=== PATIENT | female | born 1950 | race Caucasian/White ===

== ENCOUNTER 2018-12-03 15:04 | Inpatient (IN) | payer MEDICARE, BC ==
[2018-12-03] MEDS: LACTATED RINGER'S 1,000 ML IV ×2 (16:22→17:36)
[2018-12-03] MEDS: SOD CHLORIDE 0.9% 1,000 ML IV ×3 (16:22→19:54)
[2018-12-03 16:30] LABS: WHITE BLOOD COUNT 12.3 10^3/ul (4.8-10.8)
[2018-12-03 16:31] LABS: HEMATOCRIT 43.5 % (37.0-47.0); MEAN CORPUSCULAR HEMOGLOBIN 30.3 pg (29.0-33.0); MEAN CORPUSCULAR HGB CONC 34.5 g/dl (32.0-37.0); MEAN CORPUSCULAR VOLUME 87.9 fl (82.0-101.0); MEAN PLATELET VOLUME 9.4 fl (7.4-10.4); PLATELET COUNT 333 10^3/UL (140-415); RED BLOOD COUNT 4.95 10^6/ul (4.20-5.40); RED CELL DISTRIBUTION WIDTH 12.3 % (11.5-14.5)
[2018-12-03 16:37] LABS: ADD MAN DIFF? YES; POSITIVE DIFF @See below
[2018-12-03 16:52] LABS: ALANINE AMINOTRANSFERASE 12 IU/L (13-69); ALBUMIN 4.1 g/dl (3.3-4.9); ALBUMIN/GLOBULIN RATIO 1.02; ALKALINE PHOSPHATASE 134 IU/L (42-121); ANION GAP 15 (5-13); ASPARTATE AMINO TRANSFERASE 27 IU/L (15-46); BILIRUBIN,INDIRECT 0.9 mg/dl (0-1.1); BILIRUBIN,TOTAL 0.9 mg/dl (0.2-1.3); BLOOD UREA NITROGEN 34 mg/dl (7-20); CALCIUM 10.7 mg/dl (8.4-10.2); CARBON DIOXIDE 17 mmol/L (21-31); CHLORIDE 95 mmol/L (97-110); CREATININE 2.06 mg/dl (0.44-1.00); Estimated GFR 24 mL/min (>60); GLUCOSE 119 mg/dl (70-220); LIPASE 48 U/L (23-300); POTASSIUM 4.7 mmol/L (3.5-5.1); SODIUM 127 mmol/L (135-144); TOTAL PROTEIN 8.1 g/dl (6.1-8.1)
[2018-12-03 17:02] LABS: TROPONIN-I < 0.012 ng/ml (0.000-0.120)
[2018-12-03 17:50] LABS: BAND NEUTROPHILS #M 2.4 10^3/ul (0.0-0.6); BAND NEUTROPHILS % (M) 20 % (0-4); LYMPHOCYTES #M 2.3 10^3/ul (0.8-2.9); LYMPHOCYTES % (M) 19 % (15-51); METAMYELOCYTES #M 0.1 10^3/ul (0.0-0.0); METAMYELOCYTES %M 1 % (0-0); MONOCYTE #M 1.3 10^3/ul (0.3-0.9); MONOCYTES % (M) 11 % (0-11); PLATELET ESTIMATE NORMAL; POIKILOCYTOSIS 1+ (0-0); REACTIVE LYMPHOCYTES #M 0.4 10^3/ul (0.0-0.0); REACTIVE LYMPHOCYTES% (M) 4 % (0-0); SEG NEUT #M 5.8 10^3/ul (1.6-7.5); SEGMENTED NEUTROPHILS (M) % 45 % (39-77); SMUDGE%M 4 % (0-0)
[2018-12-03] MEDS ORDERED: HYDROCODONE/APAP (5/325) TAB PO (18:00)
[2018-12-03] MEDS ORDERED: morphine 2 MG INJ IV (18:00)
[2018-12-03] MEDS ORDERED: NACL 0.9% 3 ML SYG IV (18:00)
[2018-12-03] MEDS ORDERED: FAMOTIDINE 20 MG INJ IV (18:30)
[2018-12-03 18:48] LABS: ADD UMIC YES; UR ASCORBIC ACID NEGATIVE (NEGATIVE); UR BACTERIA FEW /HPF (NONE SEEN); UR BILIRUBIN (Dip) 1+ mg/dL (NEGATIVE); UR BLOOD (Dip) 2+ mg/dL (NEGATIVE); UR CLARITY CLOUDY (CLEAR); UR COLOR AMBER (YELLOW); UR GLUCOSE (Dip) NEGATIVE (NEGATIVE); UR HYALINE CAST FEW /HPF (NONE SEEN); UR KETONES (Dip) TRACE mg/dL (NEGATIVE); UR LEUKOCYTE ESTERASE (Dip) NEGATIVE Leu/ul (NEGATIVE); UR MUCUS FEW /HPF (NONE SEEN); UR NITRITE (Dip) NEGATIVE (NEGATIVE); UR RBC 54 /HPF (0-5); UR SPECIFIC GRAVITY (Dip) 1.018 (1.003-1.030); UR SQUAMOUS EPITHELIAL CELL FEW /HPF (FEW); UR TOTAL PROTEIN (Dip) NEGATIVE (NEGATIVE); UR UROBILINOGEN (Dip) 2+ mg/dL (NEGATIVE); UR WBC 3 /HPF (0-5)
[2018-12-03] MEDS: PIPER-TAZO 2.25 GM (PMX) 50 ML IVPB (19:53)
[2018-12-03] MEDS: HYDROCORTISONE 20 MG TAB PO (21:33)
[2018-12-04] MEDS ORDERED: VANCOMYCIN IV PER PHARMACY XX (00:30)
[2018-12-04] MEDS: ALBUMIN HUMAN 25% 100 ML IV ×2 (00:37→02:08)
[2018-12-04] MEDS: IOHEXOL 14.3 MG(I)/ML (ADULT) BTL PO (01:12)
[2018-12-04 01:15] LABS: ALANINE AMINOTRANSFERASE 17 IU/L (13-69); ALBUMIN 2.7 g/dl (3.3-4.9); ALBUMIN/GLOBULIN RATIO 0.93; ALKALINE PHOSPHATASE 80 IU/L (42-121); ANION GAP 8 (5-13); ASPARTATE AMINO TRANSFERASE 32 IU/L (15-46); BILIRUBIN,INDIRECT 0.6 mg/dl (0-1.1); BILIRUBIN,TOTAL 0.6 mg/dl (0.2-1.3); BLOOD UREA NITROGEN 29 mg/dl (7-20); CALCIUM 9.1 mg/dl (8.4-10.2); CARBON DIOXIDE 18 mmol/L (21-31); CHLORIDE 101 mmol/L (97-110); CREATININE 1.45 mg/dl (0.44-1.00); Estimated GFR 36 mL/min (>60); GLUCOSE 103 mg/dl (70-220); POTASSIUM 4.2 mmol/L (3.5-5.1); SODIUM 127 mmol/L (135-144); TOTAL PROTEIN 5.6 g/dl (6.1-8.1)
[2018-12-04 01:16] LABS: LACTIC ACID 2.3 mmol/L (0.5-2.0)
[2018-12-04 01:18] LABS: INR 1.31; PROTIME 16.4 Sec (11.9-14.9); PT RATIO 1.3
[2018-12-04 01:21] LABS: PARTIAL THROMBOPLASTIN TIME 41.2 Sec (23.0-35.0)
[2018-12-04] MEDS: ONDANSETRON 4 MG INJ IV (01:25)
[2018-12-04] MEDS: VANCOMYCIN 1 GM 250 ML IVPB (02:47)
[2018-12-04] MEDS: MEROPENEM 1 GM/50ML(PMX) 50 ML IVPB ×3 (02:48→20:27)
[2018-12-04] MEDS: SOD CHLORIDE 0.9% 500 ML IV ×2 (03:00→06:06)
[2018-12-04] MEDS: SOD CHLORIDE 0.9% 100 ML (05:38)
[2018-12-04] MEDS: IOHEXOL 300MG/ML 150 ML BTL (05:38)
[2018-12-04] MEDS: PANTOPRAZOLE (EC) 40 MG TAB PO (06:00)
[2018-12-04] MEDS: SOD CHLORIDE 0.9% 1,000 ML IV ×4 (06:08→22:14)
[2018-12-04 06:17] LABS: ABNORMAL IP MESSAGE 1; HEMATOCRIT 31.1 % (37.0-47.0); HEMOGLOBIN 10.4 g/dl (12.0-16.0); MEAN CORPUSCULAR HEMOGLOBIN 29.5 pg (29.0-33.0); MEAN CORPUSCULAR HGB CONC 33.4 g/dl (32.0-37.0); MEAN CORPUSCULAR VOLUME 88.4 fl (82.0-101.0); MEAN PLATELET VOLUME 9.2 fl (7.4-10.4); PLATELET COUNT 182 10^3/UL (140-415); RED BLOOD COUNT 3.52 10^6/ul (4.20-5.40); RED CELL DISTRIBUTION WIDTH 12.7 % (11.5-14.5)
[2018-12-04 06:17] LABS: WHITE BLOOD COUNT 6.9 10^3/ul (4.8-10.8)
[2018-12-04 06:25] LABS: ADD MAN DIFF? YES; POSITIVE DIFF @See below
[2018-12-04 06:28] LABS: HEMOGLOBIN A1C 5.2 % (0-5.9)
[2018-12-04 07:02] LABS: ALANINE AMINOTRANSFERASE 20 IU/L (13-69); ALBUMIN 3.5 g/dl (3.3-4.9); ALBUMIN/GLOBULIN RATIO 1.29; ALKALINE PHOSPHATASE 68 IU/L (42-121); ANION GAP 10 (5-13); ASPARTATE AMINO TRANSFERASE 40 IU/L (15-46); BILIRUBIN,INDIRECT 0.7 mg/dl (0-1.1); BILIRUBIN,TOTAL 0.7 mg/dl (0.2-1.3); BLOOD UREA NITROGEN 26 mg/dl (7-20); CALCIUM 9.3 mg/dl (8.4-10.2); CARBON DIOXIDE 17 mmol/L (21-31); CHLORIDE 98 mmol/L (97-110); CHOL/HDL RATIO 3.5 RATIO; CHOLESTEROL 109 mg/dl (100-200); CREATININE 1.29 mg/dl (0.44-1.00); Estimated GFR 41 mL/min (>60); GLUCOSE 89 mg/dl (70-220); HDL CHOLESTEROL 31 mg/dl (35-98); LDL CHOLESTEROL,CALCULATED 55 mg/dl; MAGNESIUM 1.7 mg/dl (1.7-2.5); POTASSIUM 4.7 mmol/L (3.5-5.1); SODIUM 125 mmol/L (135-144); TOTAL PROTEIN 6.2 g/dl (6.1-8.1); TRIGLYCERIDES 116 mg/dl (0-149)
[2018-12-04 08:03] LABS: ANISOCYTOSIS 1+ (0-0); BAND NEUTROPHILS #M 2.9 10^3/ul (0.0-0.6); BAND NEUTROPHILS % (M) 43 % (0-4); BURR CELLS 2+ (0-0); LYMPHOCYTES #M 1.1 10^3/ul (0.8-2.9); LYMPHOCYTES % (M) 16 % (15-51); MICROCYTOSIS 1+ (0-0); MONOCYTE #M 0.4 10^3/ul (0.3-0.9); MONOCYTES % (M) 7 % (0-11); PLATELET ESTIMATE NORMAL; POIKILOCYTOSIS 2+ (0-0); POLYCHROMASIA 3+ (0-0); SEG NEUT #M 2.5 10^3/ul (1.6-7.5); SEGMENTED NEUTROPHILS (M) % 34 % (39-77); SMUDGE%M 2 % (0-0)
[2018-12-04] MEDS: FOLIC ACID 1 MG TAB PO (09:00)
[2018-12-04] MEDS ORDERED: FENTAnyl (DRIP) 1000 mcg/100mL 100 ML IV (09:00)
[2018-12-04] MEDS ORDERED: FENTAnyl 50 MCG/ML VIAL IV (09:00)
[2018-12-04] MEDS: CHOLECALCIFEROL 1,000 UNIT TAB PO (09:00)
[2018-12-04] MEDS: HYDROCORTISONE 100 MG INJ IV ×2 (09:50→20:26)
[2018-12-04] MEDS: FAMOTIDINE 20 MG INJ IV (09:50)
[2018-12-04] MEDS: MAGNESIUM SULFATE 3 GM in DEXTROSE 5% 100 ML IVPB (11:00)
[2018-12-04] MEDS: ALBUMIN HUMAN 5% 250 ML INJ IV (11:55)
[2018-12-04 15:55] LABS: ADD UMIC YES; UR ASCORBIC ACID NEGATIVE (NEGATIVE); UR BILIRUBIN (Dip) NEGATIVE (NEGATIVE); UR BLOOD (Dip) 2+ mg/dL (NEGATIVE); UR CLARITY CLEAR (CLEAR); UR COLOR YELLOW (YELLOW); UR GLUCOSE (Dip) NEGATIVE (NEGATIVE); UR KETONES (Dip) TRACE mg/dL (NEGATIVE); UR LEUKOCYTE ESTERASE (Dip) NEGATIVE Leu/ul (NEGATIVE); UR NITRITE (Dip) NEGATIVE (NEGATIVE); UR RBC 2 /HPF (0-5); UR SPECIFIC GRAVITY (Dip) 1.033 (1.003-1.030); UR TOTAL PROTEIN (Dip) NEGATIVE (NEGATIVE); UR UROBILINOGEN (Dip) NEGATIVE (NEGATIVE); UR WBC 1 /HPF (0-5)
[2018-12-04 16:35] LABS: CREATININE,URINE RANDOM 40.38 mg/dl (20-320)
[2018-12-04 16:35] LABS: SODIUM,URINE RANDOM 96 mmol/L (30-90)
[2018-12-04 20:31] LABS: OSMOLALITY,URINE 451 mOsm/kg (250-1200)
[2018-12-05 04:51] LABS: ABNORMAL IP MESSAGE 1; HEMATOCRIT 27.7 % (37.0-47.0); HEMOGLOBIN 9.4 g/dl (12.0-16.0); MEAN CORPUSCULAR HEMOGLOBIN 29.9 pg (29.0-33.0); MEAN CORPUSCULAR HGB CONC 33.9 g/dl (32.0-37.0); MEAN CORPUSCULAR VOLUME 88.2 fl (82.0-101.0); MEAN PLATELET VOLUME 9.4 fl (7.4-10.4); PLATELET COUNT 178 10^3/UL (140-415); RED BLOOD COUNT 3.14 10^6/ul (4.20-5.40); RED CELL DISTRIBUTION WIDTH 12.8 % (11.5-14.5)
[2018-12-05 04:51] LABS: WHITE BLOOD COUNT 5.8 10^3/ul (4.8-10.8)
[2018-12-05 04:55] LABS: ADD MAN DIFF? YES; POSITIVE DIFF @See below
[2018-12-05 05:14] LABS: ANION GAP 11 (5-13); BLOOD UREA NITROGEN 22 mg/dl (7-20); CALCIUM 9.2 mg/dl (8.4-10.2); CARBON DIOXIDE 17 mmol/L (21-31); CHLORIDE 109 mmol/L (97-110); CREATININE 0.91 mg/dl (0.44-1.00); Estimated GFR > 60 mL/min (>60); GLUCOSE 110 mg/dl (70-220); MAGNESIUM 2.7 mg/dl (1.7-2.5); PHOSPHORUS 4.2 mg/dl (2.5-4.9); POTASSIUM 3.3 mmol/L (3.5-5.1); SODIUM 137 mmol/L (135-144)
[2018-12-05 07:13] LABS: ANISOCYTOSIS 2+ (0-0); BAND NEUTROPHILS #M 0.9 10^3/ul (0.0-0.6); BAND NEUTROPHILS % (M) 16 % (0-4); BURR CELLS 3+ (0-0); GIANT THROMBO% (M) 1 % (0-0); LYMPHOCYTES #M 0.4 10^3/ul (0.8-2.9); LYMPHOCYTES % (M) 8 % (15-51); MONOCYTE #M 0.2 10^3/ul (0.3-0.9); MONOCYTES % (M) 5 % (0-11); PLATELET ESTIMATE NORMAL; POIKILOCYTOSIS 3+ (0-0); POLYCHROMASIA 3+ (0-0); SEG NEUT #M 4.2 10^3/ul (1.6-7.5); SEGMENTED NEUTROPHILS (M) % 71 % (39-77); SMUDGE%M 3 % (0-0)
[2018-12-05] MEDS: POTASSIUM CHLORIDE 100 ML IVPB ×2 (07:37→10:28)
[2018-12-05] MEDS: HYDROCORTISONE 100 MG INJ IV ×2 (08:42→20:09)
[2018-12-05] MEDS: MEROPENEM 1 GM/50ML(PMX) 50 ML IVPB (08:42)
[2018-12-05] MEDS: FAMOTIDINE 20 MG INJ IV (08:42)
[2018-12-05] MEDS: CHOLECALCIFEROL 1,000 UNIT TAB PO (08:43)
[2018-12-05] MEDS: FOLIC ACID 1 MG TAB PO (08:43)
[2018-12-05] MEDS ORDERED: VANCOMYCIN 750 MG (PMX) 250 ML IVPB (15:00)
[2018-12-05] MEDS: metroNIDAZOLE 500 MG/NS (PMX) 100 ML IVPB ×2 (15:08→22:04)
[2018-12-05] MEDS: VANCOMYCIN HCL 250 MG/5ML POSYG PO ×2 (16:18→20:09)
[2018-12-05] MEDS: BISACODYL (EC) 5 MG TAB PO ×2 (16:18→22:04)
[2018-12-05] MEDS: PEG/ELECTROLYTES 4L BTL PO ×2 (17:14→20:09)
[2018-12-05] MEDS: SOD CHLORIDE 0.9% 1,000 ML IV (22:45)
[2018-12-06] MEDS: VANCOMYCIN HCL 250 MG/5ML POSYG PO ×5 (00:11→22:37)
[2018-12-06] MEDS ORDERED: VANCOMYCIN 750 MG (PMX) 250 ML IVPB (02:00)
[2018-12-06] MEDS: metroNIDAZOLE 500 MG/NS (PMX) 100 ML IVPB ×3 (05:00→19:56)
[2018-12-06 05:59] LABS: ABNORMAL IP MESSAGE 1; HEMATOCRIT 28.1 % (37.0-47.0); HEMOGLOBIN 9.7 g/dl (12.0-16.0); MEAN CORPUSCULAR HGB CONC 34.5 g/dl (32.0-37.0); MEAN PLATELET VOLUME 9.5 fl (7.4-10.4); PLATELET COUNT 223 10^3/UL (140-415); RED BLOOD COUNT 3.23 10^6/ul (4.20-5.40); RED CELL DISTRIBUTION WIDTH 12.5 % (11.5-14.5)
[2018-12-06 05:59] LABS: WHITE BLOOD COUNT 7.1 10^3/ul (4.8-10.8)
[2018-12-06 06:10] LABS: ADD MAN DIFF? YES; POSITIVE DIFF @See below
[2018-12-06 06:54] LABS: ANION GAP 8 (5-13); BLOOD UREA NITROGEN 19 mg/dl (7-20); CALCIUM 9.3 mg/dl (8.4-10.2); CARBON DIOXIDE 20 mmol/L (21-31); CHLORIDE 114 mmol/L (97-110); CREATININE 0.73 mg/dl (0.44-1.00); Estimated GFR > 60 mL/min (>60); GLUCOSE 148 mg/dl (70-220); MAGNESIUM 2.2 mg/dl (1.7-2.5); PHOSPHORUS 1.5 mg/dl (2.5-4.9); SODIUM 142 mmol/L (135-144)
[2018-12-06 07:08] LABS: CARCINOEMBRYONIC ANTIGEN 5.9 ng/ml (0.0-5.0)
[2018-12-06 07:30] LABS: BAND NEUTROPHILS #M 1.2 10^3/ul (0.0-0.6); BAND NEUTROPHILS % (M) 18 % (0-4); BURR CELLS 2+ (0-0); GIANT THROMBO% (M) 4 % (0-0); LYMPHOCYTES #M 0.4 10^3/ul (0.8-2.9); LYMPHOCYTES % (M) 7 % (15-51); MONOCYTES % (M) 1 % (0-11); PLATELET ESTIMATE NORMAL; POIKILOCYTOSIS 2+ (0-0); SEG NEUT #M 5.3 10^3/ul (1.6-7.5); SEGMENTED NEUTROPHILS (M) % 74 % (39-77); SMUDGE%M 3 % (0-0)
[2018-12-06 07:46] LABS: POTASSIUM 2.8 mmol/L (3.5-5.1)
[2018-12-06] MEDS: FAMOTIDINE 20 MG INJ IV (08:28)
[2018-12-06] MEDS: HYDROCORTISONE 100 MG INJ IV ×2 (08:28→19:56)
[2018-12-06] MEDS: CHOLECALCIFEROL 1,000 UNIT TAB PO (08:29)
[2018-12-06] MEDS: FOLIC ACID 1 MG TAB PO (08:29)
[2018-12-06] MEDS: POTASSIUM CHLORIDE 100 ML IVPB ×3 (09:17→13:51)
[2018-12-06] MEDS ORDERED: POTASSIUM PHOSPHATE 20 MEQ in SOD CHLORIDE 0.9% 250 ML IVPB (10:30)
[2018-12-06 15:11] LABS: CREATININE, RANDOM URINE 47 mg/dL (20-275); MICROALBUMIN 1.3 mg/dL; MICROALBUMIN/CREATININE RATIO 28 (<30)
[2018-12-06] MEDS: SOD CHLORIDE 0.9% 1,000 ML IV (17:22)
[2018-12-06] MEDS: POTASSIUM PHOSPHATE 20 MEQ in SOD CHLORIDE 0.9% 250 ML IVPB (17:22)
[2018-12-06] MEDS: ACETAMINOPHEN 325 MG TAB PO (22:38)
[2018-12-07] MEDS: metroNIDAZOLE 500 MG/NS (PMX) 100 ML IVPB ×3 (04:45→20:33)
[2018-12-07] MEDS: VANCOMYCIN HCL 250 MG/5ML POSYG PO ×4 (04:45→23:04)
[2018-12-07 05:05] LABS: ADD MAN DIFF? NO
[2018-12-07 05:10] LABS: WHITE BLOOD COUNT 6.3 10^3/ul (4.8-10.8)
[2018-12-07 05:10] LABS: BASOPHILS % 0.2 % (0.0-2.0); HEMATOCRIT 29.5 % (37.0-47.0); HEMOGLOBIN 10.2 g/dl (12.0-16.0); LYMPHOCYTES # 0.7 10^3/ul (0.8-2.9); LYMPHOCYTES % 11.5 % (15.0-51.0); MEAN CORPUSCULAR HEMOGLOBIN 30.3 pg (29.0-33.0); MEAN CORPUSCULAR HGB CONC 34.6 g/dl (32.0-37.0); MEAN CORPUSCULAR VOLUME 87.5 fl (82.0-101.0); MEAN PLATELET VOLUME 9.3 fl (7.4-10.4); MONOCYTE # 0.4 10^3/ul (0.3-0.9); MONOCYTES % 6.8 % (0.0-11.0); NEUTROPHILS % 80.2 % (39.0-77.0); PLATELET COUNT 232 10^3/UL (140-415); RED BLOOD COUNT 3.37 10^6/ul (4.20-5.40); RED CELL DISTRIBUTION WIDTH 12.7 % (11.5-14.5)
[2018-12-07 05:45] LABS: ANION GAP 10 (5-13); BLOOD UREA NITROGEN 22 mg/dl (7-20); CARBON DIOXIDE 21 mmol/L (21-31); CHLORIDE 112 mmol/L (97-110); Estimated GFR > 60 mL/min (>60); GLUCOSE 144 mg/dl (70-220); MAGNESIUM 1.9 mg/dl (1.7-2.5); PHOSPHORUS 1.6 mg/dl (2.5-4.9); SODIUM 143 mmol/L (135-144)
[2018-12-07] MEDS: HYDROCORTISONE 100 MG INJ IV ×2 (08:38→20:33)
[2018-12-07] MEDS: FAMOTIDINE 20 MG INJ IV (08:38)
[2018-12-07] MEDS: CHOLECALCIFEROL 1,000 UNIT TAB PO (08:38)
[2018-12-07] MEDS: FOLIC ACID 1 MG TAB PO (08:39)
[2018-12-07] MEDS: POTASSIUM CHLORIDE (SR) 20 MEQ TAB PO (09:32)
[2018-12-07] MEDS: NEUTRA-PHOS 250 MG PACKET PO (20:33)
[2018-12-07] MEDS: GABAPENTIN 400 MG CAP PO (20:33)
[2018-12-08] MEDS: metroNIDAZOLE 500 MG/NS (PMX) 100 ML IVPB ×3 (04:17→20:15)
[2018-12-08] MEDS: VANCOMYCIN HCL 250 MG/5ML POSYG PO ×3 (04:17→17:23)
[2018-12-08 06:26] LABS: ANION GAP 11 (5-13); BLOOD UREA NITROGEN 18 mg/dl (7-20); CALCIUM 8.7 mg/dl (8.4-10.2); CARBON DIOXIDE 24 mmol/L (21-31); CHLORIDE 107 mmol/L (97-110); CREATININE 0.64 mg/dl (0.44-1.00); Estimated GFR > 60 mL/min (>60); GLUCOSE 136 mg/dl (70-220); MAGNESIUM 1.5 mg/dl (1.7-2.5); PHOSPHORUS 2.1 mg/dl (2.5-4.9); SODIUM 142 mmol/L (135-144)
[2018-12-08 06:51] LABS: POTASSIUM 2.4 mmol/L (3.5-5.1)
[2018-12-08] MEDS: NEUTRA-PHOS 250 MG PACKET PO ×2 (08:33→20:15)
[2018-12-08] MEDS: HYDROCORTISONE 100 MG INJ IV ×2 (08:33→20:15)
[2018-12-08] MEDS: FAMOTIDINE 20 MG INJ IV (08:33)
[2018-12-08] MEDS: FOLIC ACID 1 MG TAB PO (08:33)
[2018-12-08] MEDS: CHOLECALCIFEROL 1,000 UNIT TAB PO (08:33)
[2018-12-08] MEDS: GABAPENTIN 400 MG CAP PO ×2 (08:33→20:15)
[2018-12-08] MEDS: ENOXAPARIN 40 MG/0.4 ML SYG SC (08:54)
[2018-12-08] MEDS: POTASSIUM CHLORIDE (SR) 20 MEQ TAB PO ×2 (09:26→14:54)
[2018-12-08] MEDS: MAGNESIUM SULFATE 4 GM/100 ML 100 ML IVPB (10:24)
[2018-12-08 14:25] LABS: ANION GAP 9 (5-13); BLOOD UREA NITROGEN 19 mg/dl (7-20); CALCIUM 8.2 mg/dl (8.4-10.2); CARBON DIOXIDE 23 mmol/L (21-31); CHLORIDE 104 mmol/L (97-110); CREATININE 0.61 mg/dl (0.44-1.00); Estimated GFR > 60 mL/min (>60); GLUCOSE 174 mg/dl (70-220); POTASSIUM 3.1 mmol/L (3.5-5.1); SODIUM 136 mmol/L (135-144)
[2018-12-08] MEDS: POTASSIUM PHOSPHATE 15 MM in SOD CHLORIDE 0.9% 250 ML IVPB (15:29)
[2018-12-09] MEDS: VANCOMYCIN HCL 250 MG/5ML POSYG PO ×4 (00:45→17:22)
[2018-12-09] MEDS: metroNIDAZOLE 500 MG/NS (PMX) 100 ML IVPB ×3 (05:37→21:20)
[2018-12-09 07:10] LABS: WHITE BLOOD COUNT 6.3 10^3/ul (4.8-10.8)
[2018-12-09 07:10] LABS: ABNORMAL IP MESSAGE 1; HEMOGLOBIN 11.6 g/dl (12.0-16.0); MEAN CORPUSCULAR HEMOGLOBIN 30.1 pg (29.0-33.0); MEAN CORPUSCULAR HGB CONC 34.1 g/dl (32.0-37.0); MEAN CORPUSCULAR VOLUME 88.1 fl (82.0-101.0); MEAN PLATELET VOLUME 9.2 fl (7.4-10.4); NUCLEATED RED BLOOD CELLS% 0.3 /100WBC (0.0-0.0); PLATELET COUNT 268 10^3/UL (140-415); RED BLOOD COUNT 3.86 10^6/ul (4.20-5.40)
[2018-12-09 07:13] LABS: ADD MAN DIFF? YES; POSITIVE DIFF @See below
[2018-12-09 08:03] LABS: ANION GAP 6 (5-13); BLOOD UREA NITROGEN 21 mg/dl (7-20); CALCIUM 8.2 mg/dl (8.4-10.2); CARBON DIOXIDE 29 mmol/L (21-31); CHLORIDE 107 mmol/L (97-110); CREATININE 0.59 mg/dl (0.44-1.00); Estimated GFR > 60 mL/min (>60); GLUCOSE 114 mg/dl (70-220); MAGNESIUM 2.1 mg/dl (1.7-2.5); SODIUM 142 mmol/L (135-144)
[2018-12-09 08:05] LABS: POTASSIUM 2.7 mmol/L (3.5-5.1)
[2018-12-09 09:01] LABS: BAND NEUTROPHILS % (M) 1 % (0-4); LYMPHOCYTES #M 1.5 10^3/ul (0.8-2.9); LYMPHOCYTES % (M) 25 % (15-51); MONOCYTE #M 0.8 10^3/ul (0.3-0.9); MONOCYTES % (M) 13 % (0-11); MYELOCYTES #M 0.1 10^3/ul (0.0-0.0); MYELOCYTES % (M) 3 % (0-0); PLATELET ESTIMATE NORMAL; POIKILOCYTOSIS 2+ (0-0); POLYCHROMASIA 1+ (0-0); SEG NEUT #M 3.7 10^3/ul (1.6-7.5); SEGMENTED NEUTROPHILS (M) % 58 % (39-77); SMUDGE%M 13 % (0-0)
[2018-12-09] MEDS: POTASSIUM CHLORIDE (SR) 20 MEQ TAB PO (09:45)
[2018-12-09] MEDS: GABAPENTIN 400 MG CAP PO (09:46)
[2018-12-09] MEDS: POTASSIUM CHLORIDE 100 ML IVPB ×2 (09:46→12:17)
[2018-12-09] MEDS: FOLIC ACID 1 MG TAB PO (09:46)
[2018-12-09] MEDS: CHOLECALCIFEROL 1,000 UNIT TAB PO (09:46)
[2018-12-09] MEDS: FAMOTIDINE 20 MG INJ IV (09:46)
[2018-12-09] MEDS: ENOXAPARIN 40 MG/0.4 ML SYG SC (09:47)
[2018-12-09] MEDS: HYDROCORTISONE 20 MG TAB PO (20:39)
[2018-12-10] MEDS: VANCOMYCIN HCL 250 MG/5ML POSYG PO ×5 (00:19→23:28)
[2018-12-10] MEDS: metroNIDAZOLE 500 MG/NS (PMX) 100 ML IVPB ×3 (05:14→21:22)
[2018-12-10 06:30] LABS: WHITE BLOOD COUNT 7.9 10^3/ul (4.8-10.8)
[2018-12-10 06:30] LABS: ABNORMAL IP MESSAGE 1; HEMATOCRIT 35.2 % (37.0-47.0); HEMOGLOBIN 11.9 g/dl (12.0-16.0); MEAN CORPUSCULAR HEMOGLOBIN 29.8 pg (29.0-33.0); MEAN CORPUSCULAR HGB CONC 33.8 g/dl (32.0-37.0); MEAN CORPUSCULAR VOLUME 88.2 fl (82.0-101.0); MEAN PLATELET VOLUME 9.1 fl (7.4-10.4); PLATELET COUNT 245 10^3/UL (140-415); RED BLOOD COUNT 3.99 10^6/ul (4.20-5.40); RED CELL DISTRIBUTION WIDTH 12.9 % (11.5-14.5)
[2018-12-10 06:34] LABS: ADD MAN DIFF? YES; POSITIVE DIFF @See below
[2018-12-10 06:59] LABS: ALANINE AMINOTRANSFERASE 33 IU/L (13-69); ALBUMIN 2.6 g/dl (3.3-4.9); ALBUMIN/GLOBULIN RATIO 0.96; ALKALINE PHOSPHATASE 85 IU/L (42-121); ANION GAP 5 (5-13); ASPARTATE AMINO TRANSFERASE 36 IU/L (15-46); BILIRUBIN,INDIRECT 0.7 mg/dl (0-1.1); BILIRUBIN,TOTAL 0.7 mg/dl (0.2-1.3); BLOOD UREA NITROGEN 19 mg/dl (7-20); CALCIUM 8.1 mg/dl (8.4-10.2); CARBON DIOXIDE 26 mmol/L (21-31); CHLORIDE 108 mmol/L (97-110); CREATININE 0.55 mg/dl (0.44-1.00); Estimated GFR > 60 mL/min (>60); GLUCOSE 96 mg/dl (70-220); POTASSIUM 3.4 mmol/L (3.5-5.1); SODIUM 139 mmol/L (135-144); TOTAL PROTEIN 5.3 g/dl (6.1-8.1)
[2018-12-10 07:00] LABS: MAGNESIUM 1.8 mg/dl (1.7-2.5)
[2018-12-10 07:00] LABS: PHOSPHORUS 2.7 mg/dl (2.5-4.9)
[2018-12-10] MEDS: LISINOPRIL 20 MG TAB PO (08:07)
[2018-12-10] MEDS: CHOLECALCIFEROL 1,000 UNIT TAB PO (08:07)
[2018-12-10] MEDS: HYDROCORTISONE 20 MG TAB PO ×2 (08:07→21:22)
[2018-12-10] MEDS: FOLIC ACID 1 MG TAB PO (08:07)
[2018-12-10] MEDS: ENOXAPARIN 40 MG/0.4 ML SYG SC (08:09)
[2018-12-10] MEDS: POTASSIUM CHLORIDE (SR) 20 MEQ TAB PO (09:03)
[2018-12-10 10:14] LABS: BAND NEUTROPHILS #M 0.1 10^3/ul (0.0-0.6); BAND NEUTROPHILS % (M) 2 % (0-4); EOSINOPHILS % (M) 2 % (0-7); LYMPHOCYTES #M 3.6 10^3/ul (0.8-2.9); LYMPHOCYTES % (M) 46 % (15-51); METAMYELOCYTES %M 1 % (0-0); MONOCYTE #M 0.2 10^3/ul (0.3-0.9); MONOCYTES % (M) 3 % (0-11); MYELOCYTES % (M) 1 % (0-0); PLATELET ESTIMATE NORMAL; POLYCHROMASIA 1+ (0-0); REACTIVE LYMPHOCYTES #M 0.2 10^3/ul (0.0-0.0); REACTIVE LYMPHOCYTES% (M) 3 % (0-0); SEG NEUT #M 3.3 10^3/ul (1.6-7.5); SEGMENTED NEUTROPHILS (M) % 42 % (39-77); SMUDGE%M 8 % (0-0)
[2018-12-10] MEDS: ACETAMINOPHEN 325 MG TAB PO (15:29)
[2018-12-11] MEDS: metroNIDAZOLE 500 MG/NS (PMX) 100 ML IVPB ×3 (05:09→22:28)
[2018-12-11] MEDS: VANCOMYCIN HCL 250 MG/5ML POSYG PO ×3 (05:09→17:22)
[2018-12-11] MEDS: HYDROCORTISONE 20 MG TAB PO ×3 (09:00→22:28)
[2018-12-11] MEDS: FOLIC ACID 1 MG TAB PO (09:21)
[2018-12-11] MEDS: CHOLECALCIFEROL 1,000 UNIT TAB PO (09:21)
[2018-12-11] MEDS: LISINOPRIL 20 MG TAB PO (09:22)
[2018-12-11] MEDS: ENOXAPARIN 40 MG/0.4 ML SYG SC (09:25)
[2018-12-11 11:23] LABS: ANION GAP 7 (5-13); BLOOD UREA NITROGEN 16 mg/dl (7-20); CALCIUM 8.4 mg/dl (8.4-10.2); CARBON DIOXIDE 28 mmol/L (21-31); CHLORIDE 103 mmol/L (97-110); Estimated GFR > 60 mL/min (>60); GLUCOSE 97 mg/dl (70-220); POTASSIUM 3.7 mmol/L (3.5-5.1); SODIUM 138 mmol/L (135-144)
[2018-12-12] MEDS: VANCOMYCIN HCL 250 MG/5ML POSYG PO ×4 (00:19→17:26)
[2018-12-12] MEDS: metroNIDAZOLE 500 MG/NS (PMX) 100 ML IVPB ×2 (06:12→13:25)
[2018-12-12 08:35] LABS: ANION GAP 5 (5-13); BLOOD UREA NITROGEN 13 mg/dl (7-20); CALCIUM 8.6 mg/dl (8.4-10.2); CARBON DIOXIDE 28 mmol/L (21-31); CHLORIDE 105 mmol/L (97-110); CREATININE 0.59 mg/dl (0.44-1.00); Estimated GFR > 60 mL/min (>60); GLUCOSE 78 mg/dl (70-220); MAGNESIUM 1.9 mg/dl (1.7-2.5); PHOSPHORUS 3.9 mg/dl (2.5-4.9); POTASSIUM 3.9 mmol/L (3.5-5.1); SODIUM 138 mmol/L (135-144)
[2018-12-12] MEDS: HYDROCORTISONE 20 MG TAB PO ×2 (09:00→21:00)
[2018-12-12] MEDS: FOLIC ACID 1 MG TAB PO (09:25)
[2018-12-12] MEDS: CHOLECALCIFEROL 1,000 UNIT TAB PO (09:25)
[2018-12-12] MEDS: LISINOPRIL 20 MG TAB PO (09:26)
[2018-12-12] MEDS: ENOXAPARIN 40 MG/0.4 ML SYG SC (09:28)
[2018-12-13] MEDS: VANCOMYCIN HCL 250 MG/5ML POSYG PO ×4 (00:22→17:05)
[2018-12-13] MEDS: FOLIC ACID 1 MG TAB PO (08:31)
[2018-12-13] MEDS: LISINOPRIL 20 MG TAB PO (08:32)
[2018-12-13] MEDS: CHOLECALCIFEROL 1,000 UNIT TAB PO (08:33)
[2018-12-13] MEDS: HYDROCORTISONE 20 MG TAB PO ×2 (08:33→21:00)
[2018-12-13] MEDS: ENOXAPARIN 40 MG/0.4 ML SYG SC (08:36)
[2018-12-14] MEDS: VANCOMYCIN HCL 250 MG/5ML POSYG PO ×4 (00:17→17:31)
[2018-12-14] MEDS: FOLIC ACID 1 MG TAB PO (08:31)
[2018-12-14] MEDS: LISINOPRIL 20 MG TAB PO (08:31)
[2018-12-14] MEDS: ENOXAPARIN 40 MG/0.4 ML SYG SC (08:32)
[2018-12-14] MEDS: ACETAMINOPHEN 325 MG TAB PO (08:32)
[2018-12-14] MEDS: HYDROCORTISONE 20 MG TAB PO (09:00)
[2018-12-14] MEDS: CHOLECALCIFEROL 1,000 UNIT TAB PO (10:00)
[2018-12-14] MEDS: SOD CHLORIDE 0.9% 1,000 ML IV (14:11)
[2018-12-14] MEDS: HEPARIN (100 UNITS/ML) 5 ML SYG CATHETER (19:24)
== END 2018-12-14 19:39 | disposition home health service (06) | DRG 871 ==
LOC: ICU 12-04 05:03 → E/R 15:04 → 6WM 12-05 10:48 → 5EC 12-08 22:29 → 6WM 17:44
PROVIDERS: Internal Medicine
PROC: 0DBP8ZX Excision of Rectum, Via Natural or Artificial Opening Endoscopic, Diagnostic (ICD-10-PCS; principal; 2018-12-06 12:00)
DX: A41.9 Sepsis, unspecified organism (principal); E43 Unspecified severe protein-calorie malnutrition; N17.9 Acute kidney failure, unspecified; E87.1 Hypo-osmolality and hyponatremia; C18.9 Malignant neoplasm of colon, unspecified; A04.72 Enterocolitis due to Clostridium difficile, not specified as recurrent; Z68.1 Body mass index [BMI] 19.9 or less, adult; N13.39 Other hydronephrosis; E87.2 Acidosis; E83.42 Hypomagnesemia; E86.0 Dehydration; E87.5 Hyperkalemia; R62.7 Adult failure to thrive; I10 Essential (primary) hypertension; E87.6 Hypokalemia; R65.20 Severe sepsis without septic shock; Z90.49 Acquired absence of other specified parts of digestive tract
CPT/HCPCS: 36415; 70450; 70551; 71045; 72170; 74176; 74177; 76775; 80048; 80053; 80061; 81001; 81003; 82043; 82378; 83036; 83605; 83690; 83735; 83935; 84100; 84155; 84300; 84443; 84484; 85025; 85610; 85730; 87040-91; 87075; 87081; 87086; 88305; 93005; 93306; 93880; 97110; 97116; 97162; 97530; 99285-25